=== PATIENT | male | born 2000 | race African-American/Black ===

== ENCOUNTER 2023-06-21 05:42 | Emergency (ER) | payer OTHER ==
[2023-06-21 06:02] VITALS: RESP 18; BMI 31.1
[2023-06-21] MEDS ORDERED: KETOROLAC TROMETHAMINE 15 MG/ML VIAL IM ONE (07:39)
[2023-06-21] MEDS ORDERED: KETOROLAC TROMETHAMINE 30 MG/1 ML VIAL IM ONE (07:56)
[2023-06-21 08:38] LABS: THROAT:GRP A STREP NOT DETECTED (NOTDETECTED)
[2023-06-21] MEDS ORDERED: PENICILLIN G BENZATHINE 1,200,000 UNIT/2 ML PFS IM ONE (08:45)
[2023-06-21] MEDS ORDERED: KETOROLAC TROMETHAMINE 30 MG/1 ML VIAL ONE (08:58)
[2023-06-21 10:58] VITALS: BP 140/76; PULSE 79; TEMP 98
== END 2023-06-21 10:05 | disposition home or self-care (01) ==
LOC: JER 05:42
PROC: 3E0233Z Introduction of Anti-inflammatory into Muscle, Percutaneous Approach (ICD-10-PCS; principal; 2023-06-21)
PROC: 3E02329 Introduction of Other Anti-infective into Muscle, Percutaneous Approach (ICD-10-PCS; 2023-06-21)
DX: R13.10 Dysphagia, unspecified (principal); J02.9 Acute pharyngitis, unspecified; R07.0 Pain in throat; J39.2 Other diseases of pharynx; R59.0 Localized enlarged lymph nodes; K08.89 Other specified disorders of teeth and supporting structures; R50.9 Fever, unspecified; Z20.822 Contact with and (suspected) exposure to COVID-19
CPT/HCPCS: 0241U-QW; 87070; 87651; 99284-25